=== PATIENT | female | born 1935 | race Caucasian/White ===

== ENCOUNTER → 2017-08-09 | Outpatient (CLI) | payer MEDICARE, OTHER ==
[~2017-08-09] MED LIST: AMLODIPINE10 MG PO; ASPIRIN 81MG TA81 MG PO; HYDROCHLOROTHIA25 M1 PO; KEFLEX 500MG.500 MG PO; MELOXICAM15 MG PO; METHOTREXATE 22.5 MG PO; TRAZODONE 50MG50 MG PO
--- NOTE | 2017-08-09 14:40 | RADIOLOGY REPORT PS360 ---
UGI SERIES W/ AIR HISTORY: DYSPEPSIA, REFLUX ORDERING PHYSICIAN: Wm Mcneil MD PATIENT AGE: 82 years COMPARISON: None FINDINGS: There is mild esophageal dysmotility. There is a small hiatal hernia and gastroesophageal reflux is noted during the exam. There is some mild mucosal irregularity along the distal aspect of the esophagus. Reflux esophagitis is considered. There may be some minimal ulceration at this area. The stomach and duodenum have an unremarkable appearance FLUOROSCOPY TIME : 1 minute and 20 seconds. IMPRESSION: 1. Esophageal dysmotility with small hiatal hernia and gastroesophageal reflux with possible esophagitis. Consider follow-up exam following treatment to ensure that the small ulcerations/mucosal irregularity resolves 2. Otherwise negative upper GI.
--- NOTE | 2017-08-09 16:26 | RADIOLOGY REPORT PS360 ---
US RUQ-(ABD LTD)1ORGAN/QUAD/FU HISTORY: Chest pain with burning, reflux, nausea, shoulder pain DYSPEPSIA, REFLUX ORDERING PHYSICIAN: Wm Mcneil MD PATIENT AGE: 82 years COMPARISON: None FINDINGS: PANCREAS:Unremarkable. No obvious mass or abnormal fluid collection. No ductal dilatation LIVER:No focal liver lesions demonstrated. Homogeneous echogenicity. No intrahepatic biliary ductal dilatation evident RIGHT KIDNEY:Unremarkable. Normal size and echogenicity. No hydronephrosis GALLBLADDER:No gallstones, gallbladder wall thickening, pericholecystic fluid, or biliary dilatation. IMPRESSION: Unremarkable right upper quadrant ultrasound
== END ==
LOC: RAD 10:04
DX: K21.9 Gastro-esophageal reflux disease without esophagitis (principal); R10.13 Epigastric pain